=== PATIENT | male | born 1940 | race Caucasian/White ===

== ENCOUNTER 2018-03-05 15:57 | Inpatient (IN) | payer OTHER ==
--- NOTE | 2018-03-05 16:59 | EDPHY ---
HPI/HX/ROS/PE/MDM Narrative: CHIEF COMPLAINT: Drainage from scrotum HPI: This is a 77 y/o male with a history of psoriatic arthritis on immunosuppressants and interstitial lung disease who arrives with his complaining of malodorous drainage from his scrotum that he noticed today, but he believes began yesterday. He had a scrotal abscess treated by Dr. Pascual from urology in May of this year. He says this left a "dimple," but healed well and he's had no recurrent issues until this event. They did not determine the cause of the abscess. 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 He dug through his laundry and saw a small amount of similar drainage on his underwear yesterday. He denies associated pain, fever, or any other symptoms. He also did not experience pain with the prior abscess. REVIEW OF SYSTEMS: A comprehensive 10 system review of systems is otherwise negative aside from elements mentioned in the history of present illness. PMH: Psoriatic arthritis; interstitial lung disease, scrotal abscess removed [address] Pascual. SOCIAL HISTORY: at bedside. Lives in [place]. Urologist: Dr. Pascual. PHYSICAL EXAM: General:Patient is alert, in no acute distress. ENT:Eyes are normal to inspection. ENT inspection normal. Neck: Normal inspection. Full range of motion. Respiratory:No respiratory distress. Breath sounds normal bilaterally. Cardiovascular: Regular rate and rhythm. Strong peripheral pulses. Normal cap refill. Abdomen:The abdomen is nontender to palpation. There are no peritoneal signs. : [place]-sized area of fluctuance on right hemiscrotum near midline with expressible purulence. Back: Normal to inspection. No tenderness to palpation. Skin: Normal color. No rash. Warm and dry. Extremities: Normal appearance. Full range of motion. Neuro: Oriented x3. Normal motor function. Normal sensory function. ED Course: This is an immunosuppressed 77 y/o male with a history of psoriatic arthritis and prior scrotal abscess drained this May who presents with nonpainful scrotal drainage onset yesterday. He has a marble-sized area of fluctuance on the right hemiscrotum with active purulent drainage. Plan for IV, labs, scrotal ultrasound. 171: Consulted with Dr. Pascual, urologist. He recommends admission and will consult. 1723: Consulted with Dr. Wang, ID. She recommends culture and starting 1gm IV Ertapenem. 1744: Spoke with hospitalist service. Dr. Flores accepts admission. US confirms scrotal abscess. - Data Points Imaging: Discussed imaging studies w/ director call center sales Radiologist Laboratory Results: Laboratory Results 03/05/18 17:10 03/05/18 17:10 03/05/18 03/05/18 17:10 17:10 WBC 7.72 10^3/uL 10^3/uL (3.80-9.50) RBC 4.12 10^6/uL L 10^6/uL (4.40-6.38) Hgb 12.5 g/dL L g/dL (13.7-17.5) Hct 38.6 % L % (40.0-51.0) MCV 93.7 fL fL (81.5-99.8) MCH 30.3 pg pg (27.9-34.1) MCHC 32.4 g/dL g/dL (32.4-36.7) RDW 14.2 % % (11.5-15.2) Plt Count 159 10^3/uL 10^3/uL (150-400) MPV 10.3 fL fL (8.7-11.7) Neut % (Auto) 62.4 % % (39.3-74.2) Lymph % (Auto) 16.3 % % (15.0-45.0) [place] % (Auto) 6.6 % % (4.5-13.0) Eos % (Auto) 12.7 % H % (0.6-7.6) Baso % (Auto) 1.6 % % (0.3-1.7) Nucleat RBC Rel Count 0.0 % % (0.0-0.2) Absolute Neuts (auto) 4.82 10^3/uL 10^3/uL (1.70-6.50) Absolute Lymphs (auto) 1.26 10^3/uL 10^3/uL (1.00-3.00) Absolute Monos (auto) 0.51 10^3/uL 10^3/uL (0.30-0.80) Absolute Eos (auto) 0.98 10^3/uL H 10^3/uL (0.03-0.40) Absolute Basos (auto) 0.12 10^3/uL H 10^3/uL (0.02-0.10) Absolute Nucleated RBC 0.00 10^3/uL 10^3/uL (0-0.01) Immature Gran % 0.4 % % (0.0-1.1) Immature Gran # 0.03 10^3/uL 10^3/uL (0.00-0.10) Sodium 142 mEq/L mEq/L (135-145) Potassium 3.8 mEq/L mEq/L (3.3-5.0) Chloride 109 mEq/L mEq/L (97-110) Carbon Dioxide 24 mEq/l mEq/l (22-31) Anion Gap 9 mEq/L mEq/L (6-14) BUN 19 mg/dL mg/dL (7-23) Creatinine 0.7 mg/dL mg/dL (0.7-1.3) Estimated GFR > 60 Glucose 93 mg/dL mg/dL (70-100) Calcium 9.0 mg/dL mg/dL (8.5-10.4) General Time Seen by Provider: 03/05/18 16:25 Initial Vital Signs: Initial Vital Signs Temperature (C) 37.1 C 03/05/18 16:18 Heart Rate 68 03/05/18 16:18 Respiratory Rate 18 03/05/18 16:18 Blood Pressure 190/108 H 03/05/18 16:18 O2 Sat (%) 95 03/05/18 16:18 O2 Delivery Mode Nasal Cannula O2 (L/minute) 4 Allergies/Adverse Reactions: Sulfa (Sulfonamide Antibiotics) Allergy (Verified 03/05/18 18:17) Home Medications: Medication Instructions Recorded Ascorbic Acid [Vitamin C 500 mg 500 mg PO DAILY 03/05/18 (*)] Aspirin EC [Aspirin EC 81 mg (*)] 81 mg PO HS 03/05/18 Budesonide/Formoterol 80/4.5 2 puffs IH BID PRN 03/05/18 [Symbicort 80-4.5 Mcg Inhaler] Cholecalciferol Vit D3 [Vitamin D3 2,000 units PO DAILY 03/05/18 (*)] Magnesium Oxide [Magnesium] 500 mg PO DAILY 03/05/18 Multivitamins [Multivitamin (*)] 1 each PO DAILY 03/05/18 Potassium Gluconate 550 mg PO DAILY 03/05/18 Ranitidine HCl [Zantac] 300 mg PO HS 03/05/18 methylPREDNISolone [Medrol 4mg (*)] 4 mg PO DAILY 03/05/18 Departure - Departure Disposition: [facility] Inpatient Acute Clinical Impression: Scrotal abscess Condition: Fair Report Scribed for: Anjum Solomon Report Scribed by: Carmina Chowdary Date of Report: 03/05/18 Time of Report: 16:55 Physician Review and Approval Statement: Portions of this note were transcribed by an ED scribe. I personally performed the history, physical exam, and medical decision making; and confirm the accuracy of the information in the transcribed note.
[2018-03-05] MEDS ORDERED: ERTAPENEM 1 GM in NS 100 ML IV ONE (17:25)
[2018-03-05 17:26] LABS: PLATELET COUNT 159 10^3/uL (150-400)
[2018-03-05] MEDS ORDERED: ONDANSETRON DISINTEGRATING 4 MG TAB PO PRN (19:27)
[2018-03-05] MEDS ORDERED: PROMETHAZINE HCL 25 MG/ML INJ IVP PRN (19:27)
[2018-03-05] MEDS ORDERED: oxyCODONE IR 5 MG TAB PO PRN (19:27)
[2018-03-05] MEDS ORDERED: ONDANSETRON 4 MG/2 ML VIAL IVP PRN (19:27)
[2018-03-05] MEDS ORDERED: ALBUTEROL 3 ML DEYVIAL IH PRN (19:27)
[2018-03-05] MEDS ORDERED: HYDROCODONE/APAP 5/325 TAB PO PRN (19:27)
[2018-03-05] MEDS ORDERED: BUDESONIDE/FORMOTEROL 80/4.5 60 PUFFS/MDI IH PRN (19:30)
[2018-03-05] MEDS ORDERED: NS 1,000 ML IV SCH (19:30)
--- NOTE | 2018-03-05 20:30 | PDGENHP ---
History and Physical - Chief Complaint drainage from scrotum - History of Present Illness Patient is a 77 yo M with PMH of psoriatic arthritis for which he has been treated with chronic immune modulatory medications and who had a scrotal abscess treated by Dr. Pascual in May of this year. He notes that he stayed off of his immunotherapy medications since then until last week when he began to notice increased arthritic sxs and saw his mold runner who started him on otezla last week. He has been on a "starter packet" of otezla, and had just gotten to the regular dose today. He notes he has been feeling well other than that he noticed some foul smelling drainage in his boxers and noticed that the area of his scrotum where the prior abscess was located was again draining and tender. He has not had fever or chills. He has not had other issues recently. History Information - Allergies/Home Medication List Allergies/Adverse Reactions: Sulfa (Sulfonamide Antibiotics) Allergy (Verified 03/05/18 18:17) Home Medications: Apremilast [Otezla] 30 mg PO BID 03/05/18 [Last Taken 03/05/18] Ascorbic Acid [Vitamin C 500 mg (*)] 500 mg PO DAILY 03/05/18 [Last Taken ] Aspirin EC [Aspirin EC 81 mg (*)] 81 mg PO HS 03/05/18 [Last Taken 03/04/18] Budesonide/Formoterol 80/4.5 [Symbicort 80-4.5 Mcg Inhaler] 2 puffs IH BID PRN 03/05/18 [Last Taken Unknown] Cholecalciferol Vit D3 [Vitamin D3 (*)] 2,000 units PO DAILY 03/05/18 [Last Taken 03/05/18] Magnesium Oxide [Magnesium] 500 mg PO DAILY 03/05/18 [Last Taken 03/05/18] Multivitamins [Multivitamin (*)] 1 each PO DAILY 03/05/18 [Last Taken 03/05/18] Potassium Gluconate 550 mg PO DAILY 03/05/18 [Last Taken 03/05/18] Ranitidine HCl [Zantac] 300 mg PO HS 03/05/18 [Last Taken 03/04/18] methylPREDNISolone [Medrol 4mg (*)] 4 mg PO DAILY 03/05/18 [Last Taken 03/05/18] I have personally reviewed and updated: family history, medical history, social history, surgical history - Past Medical History Additional medical history: psoriatic arthritis on chronic immune suppressants. ILD. scrotal abscess - Surgical History Additional surgical history: surgery for scrotal abscess - Family History Positive for: non-pertinent - Social History Smoking Status: Former smoker Alcohol Use: Rarely Drug Use: None Additional social history: Review of Systems Review of Systems: ROS: 10pt was reviewed & negative except for what was stated in HPI & below Physical Exam Physical Exam: Temp Pulse Resp BP Pulse Ox 36.6 C 66 17 149/86 H 90 L 03/05/18 19:17 03/05/18 19:17 03/05/18 19:17 03/05/18 19:17 03/05/18 19:17 Constitutional: no apparent distress, appears nourished Eyes: PERRL, anicteric sclera Ears, Nose, Mouth, Throat: moist mucous membranes, hearing normal Cardiovascular: regular rate and rhythym, no murmur, rub, or gallop, No edema Respiratory: reduced air movement, inspiratory crackles Gastrointestinal: normoactive bowel sounds, soft, non-tender abdomen Genitourinary: no bladder tenderness, other (scrotal abscess, purulent drainage) Skin: warm, normal color Musculoskeletal: no muscle tenderness Neurologic: AAOx3 Psychiatric: interacting appropriately, not anxious, not encephalopathic Lab Data & Imaging Review 03/05/18 17:10 03/05/18 17:10 WBC 7.72 10^3/uL (3.80-9.50) 03/05/18 17:10 RBC 4.12 10^6/uL (4.40-6.38) L 03/05/18 17:10 Hgb 12.5 g/dL (13.7-17.5) L 03/05/18 17:10 Hct 38.6 % (40.0-51.0) L 03/05/18 17:10 MCV 93.7 fL (81.5-99.8) 03/05/18 17:10 MCH 30.3 pg (27.9-34.1) 03/05/18 17:10 MCHC 32.4 g/dL (32.4-36.7) 03/05/18 17:10 RDW 14.2 % (11.5-15.2) 03/05/18 17:10 Plt Count 159 10^3/uL (150-400) 03/05/18 17:10 MPV 10.3 fL (8.7-11.7) 03/05/18 17:10 Neut % (Auto) 62.4 % (39.3-74.2) 03/05/18 17:10 Lymph % (Auto) 16.3 % (15.0-45.0) 03/05/18 17:10 [place] % (Auto) 6.6 % (4.5-13.0) 03/05/18 17:10 Eos % (Auto) 12.7 % (0.6-7.6) H 03/05/18 17:10 Baso % (Auto) 1.6 % (0.3-1.7) 03/05/18 17:10 Nucleat RBC Rel Count 0.0 % (0.0-0.2) 03/05/18 17:10 Absolute Neuts (auto) 4.82 10^3/uL (1.70-6.50) 03/05/18 17:10 Absolute Lymphs (auto) 1.26 10^3/uL (1.00-3.00) 03/05/18 17:10 Absolute Monos (auto) 0.51 10^3/uL (0.30-0.80) 03/05/18 17:10 Absolute Eos (auto) 0.98 10^3/uL (0.03-0.40) H 03/05/18 17:10 Absolute Basos (auto) 0.12 10^3/uL (0.02-0.10) H 03/05/18 17:10 Absolute Nucleated RBC 0.00 10^3/uL (0-0.01) 03/05/18 17:10 Immature Gran % 0.4 % (0.0-1.1) 03/05/18 17:10 Immature Gran # 0.03 10^3/uL (0.00-0.10) 03/05/18 17:10 Sodium 142 mEq/L (135-145) 03/05/18 17:10 Potassium 3.8 mEq/L (3.3-5.0) 03/05/18 17:10 Chloride 109 mEq/L (97-110) 03/05/18 17:10 Carbon Dioxide 24 mEq/l (22-31) 03/05/18 17:10 Anion Gap 9 mEq/L (6-14) 03/05/18 17:10 BUN 19 mg/dL (7-23) 03/05/18 17:10 Creatinine 0.7 mg/dL (0.7-1.3) 03/05/18 17:10 Estimated GFR > 60 03/05/18 17:10 Glucose 93 mg/dL (70-100) 03/05/18 17:10 Calcium 9.0 mg/dL (8.5-10.4) 03/05/18 17:10 Visualized and Interpreted imaging results: Yes Interpretation: US: scrotal wall thickening and edema with 1.5cm abscess Assessment & Plan Assessment: Scrotal abscess (Acute) 77 yo M with hx of psoriatic arthritis and ILD presenting with recurrent scrotal abscess # scrotal abscess: with some drainage but persistent indurated area that is not draining spontaneously. Urology consulted and Dr. Pascual to see in am, he has operated on this patient in the past and presumably will require drainage again in the am. Started on ertapenem per ID recommendation. Suspect this is at least in part due to resuming immune suppressing medications as next. # psoriatic arthritis: with sxs currently recurring after being off of immune modulating medications other than low dose prednisone since May, and restarting otezla this past week. Given above, will have patient hold otezla again and recommend f/u with mold runner to determine when this should be resumed. # cough: with hx of ILD and pulmonary exam concerning for decreased BS, occasional wheeze and bibasilar rales. Will get cxr, prn albuterol for now. # ILD: as above, patient followed by pulmonary MD in [place], denies significant acute change # observation status Patient new to my care. Old records reviewed and summarized as above. Care plan reviewed with ER doctor including plans for abx. Further hx obtained from patients family present at bedside.
[2018-03-05] MEDS: FAMOTIDINE 20 MG TAB PO SCH (20:45)
--- NOTE | 2018-03-05 20:47 | SOAPPROG ---
SOAP Progress Note Assessment/Plan: Assessment: Localized scrotal abscess - pt. stable and nontoxic. Plan: To OR for I&D tomorrow. (consult dict. # [id number]). Objective: Vital Signs Temp Pulse Resp BP Pulse Ox 36.6 C 66 17 149/86 H 90 L 03/05/18 19:17 03/05/18 19:17 03/05/18 19:17 03/05/18 19:17 03/05/18 19:17 ICD10 Worksheet Patient Problems: Problems Problem Status Onset Scrotal abscess Acute
--- NOTE | 2018-03-06 04:17 | GCON ---
UROLOGY CONSULTATION REFERRING PHYSICIAN: Hospitalist Service REASON FOR CONSULTATION: Scrotal abscess. HISTORY OF PRESENT ILLNESS: This is a 77-year-old gentleman with a longstanding history of psoriatic arthritis who developed a scrotal abscess in May of this year and underwent incision and drainage with extended wound packing and local care thereafter. He was doing well when he noticed some foul smelling drainage in his underwear earlier today and determined it was coming from his scrotum. He called my office as a result. He was asked to present to the emergency room. The patient denies any associated tenderness, fevers, flu- like symptoms. He is not sure when the drainage began but, in retrospect, he looked at his underwear from yesterday and also noticed a smaller spot of drainage. He was started on Otezla last week for his for his arthritis. PAST MEDICAL HISTORY: Psoriatic arthritis, interstitial lung disease. PAST SURGICAL HISTORY: Incision and drainage of a scrotal abscess in 05/2017. ADMISSION MEDICATIONS: Otezla 30 mg b.i.d., methylprednisolone 4 mg daily, ranitidine 300 mg daily, potassium gluconate 550 mg daily, magnesium oxide 500 mg daily, multivitamin, baby aspirin. MEDICAL ALLERGIES: Sulfa. FAMILY HISTORY: Noncontributory. SOCIAL HISTORY: The patient is and lives in the [place] area. He is a former smoker and consumes alcohol rarely at this time. REVIEW OF SYSTEMS: Unremarkable, other than mentioned above in the HPI and Past Medical History. PHYSICAL EXAMINATION: GENERAL: Well-developed, well-nourished white male lying supine in bed, in no acute distress. VITAL SIGNS: Blood pressure 149/86 , pulse 66, respirations 17, oxygen saturation is 98% on room air, temperature 36.6 Celsius. Height 182 cm, weight 90 kg, BMI 27. HEENT: Normocephalic, atraumatic. NECK: Supple. No visual deformities. HEART: Regular rate. CHEST: Unlabored respiratory pattern. ABDOMEN: Soft, without palpable abnormalities. GENITALIA: Normal phallus and urethral meatus. Scrotum is remarkable for an approximately 2 cm area of fluctuance in the midline, immediately adjacent to a prior incision from scrotal abscess incision and drainage in May. With manipulation, I was able to express mucopurulent discharge that is malodorous. There is no significant tenderness nor erythema associated with the scrotum. The testicular structures appear normal. The abscess appears to involve the depth of the scrotal wall, but not obviously any underlying structures. EXTREMITIES: Warm without cyanosis, clubbing, or significant edema. NEUROLOGIC : He is alert and oriented. He answers all questions appropriately with normal mood and affect. DATA REVIEWED: CBC today is normal. Chemistry panel normal. IMPRESSION: Localized recurrent scrotal wall abscess. He is currently stable and not toxic. PLAN: Proceed with scrotal incision and drainage, possible partial scrotectomy , intraoperatively tomorrow. All aspects of this procedure were reviewed in detail with the patient and his family this evening. All questions were answered. Thank you for this consultation. Copy requested to: Dr. Keesha De Souza /[id number]/MODL MTDD
[2018-03-06 05:59] LABS: PLATELET COUNT 143 10^3/uL (150-400)
[2018-03-06] MEDS: ACETAMINOPHEN 325 MG TAB PO PRN ×3 (06:38→17:29)
[2018-03-06] MEDS: ERTAPENEM 1 GM in NS 100 ML IV SCH (07:41)
[2018-03-06] MEDS: MAGNESIUM OXIDE 400 MG TAB PO SCH (07:42)
[2018-03-06] MEDS: MULTIVITAMINS 1 EACH TAB PO SCH (07:42)
[2018-03-06] MEDS: methylPREDNISolone 4 MG TAB PO SCH (07:54)
[2018-03-06] MEDS ORDERED: fentaNYL 100 MCG/2 ML INJ ONE (10:18)
[2018-03-06] MEDS ORDERED: PROPOFOL 200 MG/20 ML VIAL ONE ×3 (10:19→11:36)
[2018-03-06] MEDS ORDERED: DEXAMETHASONE 4 MG/ML VIAL ONE (10:20)
--- NOTE | 2018-03-06 10:24 | PDANEPAE ---
ANE History of Present Illness scrotal abcess I&D. ANE Past Medical History - Cardiovascular History Hx Hypertension: No Hx Arrhythmias: No Hx Chest Pain: No Hx Coronary Artery / Peripheral Vascular Disease: No Hx CHF / Valvular Disease: No Hx Palpitations: No Cardiovascular History Comment: s/p repair of PFO - Pulmonary History Hx COPD: No Hx Asthma/Reactive Airway Disease: No Hx Recent Upper Respiratory Infection: Yes Hx Oxygen in Use at Home: No Hx Sleep Apnea: No Sleep Apnea Screening Result - Last Documented: Positive Pulmonary History Comment: Interstitial lung disease, uses 4 l/min QHS. Status post sleep study: no PAWEL - Neurologic History Hx Cerebrovascular Accident: Yes Neurologic History Comment: S/p TIA in 1999, s/p PFO - Endocrine History Hx Diabetes: No Hypothyroid: No Hyperthyroid: No Obesity: mild - Renal History Hx Renal Disorders: No - Liver History Hx Hepatic Disorders: No - Neurological & Psychiatric Hx Hx Neurological and Psychiatric Disorders: No - Cancer History Hx Cancer: No - GI History GERD: severe Hx Gastrointestinal Disorders: Yes - Other Health History Other Health History: psoriatic arthitis, dx in 2012 - Chronic Pain History Chronic Pain: No - Surgical History Prior Surgeries: partial colectomy, PFO repair, I&D of scrotal abcess, excision of lumbar spine cyst ANE Review of Systems Review of Systems: - Exercise capacity METS (RN): 4 METS ANE Patient History - Allergies Allergies/Adverse Reactions: Sulfa (Sulfonamide Antibiotics) Allergy (Verified 03/05/18 18:17) - Home Medications Home Medications: Apremilast [Otezla] 30 mg PO BID 03/05/18 [Last Taken 03/05/18] Ascorbic Acid [Vitamin C 500 mg (*)] 500 mg PO DAILY 03/05/18 [Last Taken ] Aspirin EC [Aspirin EC 81 mg (*)] 81 mg PO HS 03/05/18 [Last Taken 03/04/18] Budesonide/Formoterol 80/4.5 [Symbicort 80-4.5 Mcg Inhaler] 2 puffs IH BID PRN 03/05/18 [Last Taken Unknown] Cholecalciferol Vit D3 [Vitamin D3 (*)] 2,000 units PO DAILY 03/05/18 [Last Taken 03/05/18] Magnesium Oxide [Magnesium] 500 mg PO DAILY 03/05/18 [Last Taken 03/05/18] Multivitamins [Multivitamin (*)] 1 each PO DAILY 03/05/18 [Last Taken 03/05/18] Potassium Gluconate 550 mg PO DAILY 03/05/18 [Last Taken 03/05/18] Ranitidine HCl [Zantac] 300 mg PO HS 03/05/18 [Last Taken 03/04/18] methylPREDNISolone [Medrol 4mg (*)] 4 mg PO DAILY 03/05/18 [Last Taken 03/05/18] - NPO status NPO Since - Liquids (Date): 03/06/18 NPO Since - Liquids (Time): 00:00 NPO Since - Solids (Date): 03/06/18 NPO Since - Solids (Time): 00:00 - Anes Hx Anes Hx: no prior problems - Smoking Hx Smoking Status: Former smoker Marijuana use: No - Alcohol Use Alcohol Use: Rarely - Family Anes Hx Family Anes Hx: none ANE Labs/Vital Signs - Labs Result Diagrams: 03/06/18 04:20 03/06/18 04:20 - Vital Signs Blood Pressure: 143/83 Heart Rate: 60 Respiratory Rate: 16 O2 Sat (%): 99 Height: 182.88 cm Weight: 90.718 kg ANE Physical Exam - Airway Neck exam: decreased ROM Mallampati Score: Class 2 Mouth exam: normal dental/mouth exam - Pulmonary Pulmonary: clear to auscultation - Cardiovascular Cardiovascular: regular rate and rhythym - ASA Status ASA Status: III ANE Anesthesia Plan Anesthesia Plan: general endotracheal anesthesia
[2018-03-06] MEDS ORDERED: MIDAZOLAM 2 MG/2 ML VIAL IVP ONE (10:36)
[2018-03-06] MEDS ORDERED: MIDAZOLAM 2 MG/2 ML VIAL ONE (10:39)
[2018-03-06] MEDS ORDERED: ROCURONIUM 50 MG/5 ML VIAL ONE (10:44)
--- NOTE | 2018-03-06 10:50 | HOSPPROG ---
Hospitalist Progress Note Assessment/Plan: 77 yo M with hx of psoriatic arthritis and ILD presenting with recurrent scrotal abscess # scrotal abscess: with some drainage but persistent indurated area that is not draining spontaneously. Urology consulted and Dr. Pascual plans for I&D this am. Started on ertapenem per ID recommendation, will continue for now. Suspect this is at least in part due to resuming immune suppressing medications as next. # psoriatic arthritis: with sxs currently recurring after being off of immune modulating medications other than low dose prednisone since May, and restarting otezla this past week. Given above, will have patient hold otezla again and recommend f/u with maintenance shop clerk to determine when this should be resumed. # cough: with hx of ILD and pulmonary exam concerning for decreased BS, occasional wheeze and bibasilar rales. Prn albuterol for now. # ILD: as above, patient followed by pulmonary MD in [place], denies significant acute change Subjective: Patient reports pain in scrotum Objective: Vital Signs Temp Pulse Resp BP Pulse Ox 36.3 C 60 16 143/83 H 99 03/06/18 10:19 03/06/18 10:36 03/06/18 10:36 03/06/18 10:36 03/06/18 10:36 Laboratory Results 03/06/18 04:20 03/06/18 04:20 - Physical Exam Constitutional: no apparent distress Eyes: PERRL Ears, Nose, Mouth, Throat: moist mucous membranes Cardiovascular: regular rate and rhythym Respiratory: no respiratory distress Gastrointestinal: soft, non-tender abdomen Skin: erythema, fluctuance Musculoskeletal: full muscle strength Neurologic: AAOx3 Psychiatric: interacting appropriately ICD10 Worksheet Patient Problems: Problems Problem Status Onset Scrotal abscess Acute
[2018-03-06] MEDS ORDERED: ONDANSETRON 4 MG/2 ML VIAL ONE (11:24)
[2018-03-06] MEDS ORDERED: SUGAMMADEX SODIUM 200 MG/2 ML VIAL IVP ONE (11:28)
[2018-03-06] MEDS ORDERED: NALOXONE HCL 0.4 MG/ML INJ IVP PRN (11:40)
[2018-03-06] MEDS ORDERED: ALBUTEROL 3 ML DEYVIAL IH PRN (11:40)
[2018-03-06] MEDS ORDERED: fentaNYL 100 MCG/2 ML INJ IVP PRN (11:40)
[2018-03-06] MEDS ORDERED: ONDANSETRON 4 MG/2 ML VIAL IVP PRN (11:40)
[2018-03-06] MEDS ORDERED: BUPIVACAINE/EPI 0.5% 30 ML SDV ONE (11:45)
--- NOTE | 2018-03-06 12:06 | POSTOPPROG ---
Post Op Note Date of Operation: 03/06/18 Surgeon: Steve Pascual (# [id number]) Anesthesia: GET(General Endotracheal) Pre-op Diagnosis: Scrotal wall abscess Post-op Diagnosis: Scrotal wall abscess Procedure: Partial scrotectomy Findings: See op note Inf/Abcess present in the surg proc area at time of surgery?: Yes Depth: Superfical (Skin SQ) EBL: Minimal Complications: None Specimen(s): Scrotal wall
[2018-03-06] MEDS ORDERED: ALBUTEROL 3 ML DEYVIAL ONE ×2 (12:13→12:21)
--- NOTE | 2018-03-06 12:16 | POSTANESTH ---
Post Anesthetic Evaluation Cardiovascular Status: Normal, Stable Respiratory Status: Similar to Pre-op Cond. Level of Consciousness/Mental Status: Can Participate in Eval Pain Control: Adequate, Prn Tx Ordered Nausea/Vomiting Control: Adequate, Prn Tx Ordered Complications Possibly Related to Anesthesia: None Noted
--- NOTE | 2018-03-06 12:25 | GOP ---
DATE OF OPERATION: 03/06/2018 SURGEON: Steve Pascual MD ANESTHESIA: General endotracheal with local. PREOPERATIVE DIAGNOSIS: Scrotal wall abscess. POSTOPERATIVE DIAGNOSIS: Scrotal wall abscess. PROCEDURE PERFORMED: Partial scrotectomy. FINDINGS: Scrotal wall abscess in the midline, which was confined to the wall and not involving deep er structures. SPECIMENS: 1. Scrotal abscess for aerobic and anaerobic culture. 1. Partial scrotal wall with contained abscess. 2. ESTIMATED BLOOD LOSS: Minimal. INDICATIONS: This gentleman was admitted yesterday with a localized scrotal abscess with a prior his tory of a scrotal abscess that required incision and drainage in May 2017. The patient presents for operative management at this time. The indications for the procedures as well as potential risk s and complications were discussed with the patient preoperatively. He appeared to understand, his q uestions were answered, and he wished to proceed. Written informed surgical consent was thereafter o btained. DESCRIPTION OF PROCEDURE: The patient was brought to the operating room and administered a general e ndotracheal anesthesia. He was carefully placed in a modified frog-leg supine position on the operat ing room table. The genital area was sterilely prepped with Betadine scrub and paint, and then drape d in the usual sterile fashion. The patient was placed in mild Trendelenburg position. I examined t he patient under anesthesia, that the abscess was localized to the scrotal wall and not in volving deeper layers. Therefore, I decided that I would perform a partial scrotal wall excision. T he area involving the abscess appeared to be approximately 3 to 4 cm in diameter. I made an elliptic al incision around the diseased portion of the scrotal wall that was centered around the scrotal raph e. The portion of scrotal wall to be excised was dissected free from the underlying tunica vaginalis and midline septum with electrocautery. Once the portion of the scrotal wall was completely excised , cultures were obtained on the back table for aerobic and anaerobic organisms. The specimen was als o sent to Pathology for permanent histologic examination. Palpation of the surrounding remaining por tion of the scrotum revealed no abnormalities. The tunica vaginalis was not violated and appeared no rmal. There was good viability to the remaining scrotal wall. I decided to close it primarily. I d id not feel that postoperative drainage was necessary. The underlying scrotal dartos was reapproxima jaylyn with running 3-0 Vicryl suture. The skin edges were then reapproximated with interrupted 3-0 chr omic suture. The wound was dressed with Xeroform gauze, Telfa, 4x4s, scrotal fluffs, and scrotal sup port. A total of 12 cc of 0.5% Marcaine with epinephrine was used for local anesthetic as well. The patient was then awakened, extubated, transferred to his bed, then taken to the recovery room. He t olerated the procedure well overall. COMPLICATIONS: None. DISPOSITION: He was transferred to the recovery room in stable condition. /[id number]/MODL
--- NOTE | 2018-03-06 13:54 | PDMN ---
Medical Necessity Medical necessity: [facility] Urologic Surgery or Procedure GR yo presents with abscess to scrotum. ID consult, pt started on antibx. Urology consult, pt will need urgent surgery - taken for I&D, partial scrotectomy instead. Pt will require additional MN for post op monitoring, cont IV antbx - important to note, pt was taking immunosuppressants prior to this hospitalization. Hx psoriatic arthritis on chronic immune suppressants, ILD, past scrotal abscess. Change to IP status 03/06@1111 per MD order
--- NOTE | 2018-03-06 14:55 | ASMTCMCOM ---
CM Note CM Note Notes: 77yo male admitted for a Scrotal abscess. He has a Hx of psoriatic arthritis and taking chronic immune modulating medicine which he had been not taking due to a previous scrotal abscess. Once he resumed this medication he had more drainage. Patient now on ABX and went to surgery for a partial scrotectomy. Patient lives with his in [place]. CM to follow for possible discharge needs. Date Signed: 03/06/2018 02:54 PM Electronically Signed By:Elizabeth Pennington LCSW
[2018-03-06] MEDS: FAMOTIDINE 20 MG TAB PO SCH (20:32)
[2018-03-07 05:09] VITALS: BP 126/79
--- NOTE | 2018-03-07 08:58 | SOAPPROG ---
SOAP Progress Note Assessment/Plan: Assessment: Localized superficial scrotal abscess - s/p partial scrotectomy yesterday. Doing well. Plan: May discharge from my standpoint whenever deemed appropriate by hospitalist service. I don't believe any discharge antibiotics are necessary. FU in my office in 3 weeks. Wound care instructions provided under Discharge Plan. Subjective: No complaints. Objective: Vital Signs Temp Pulse Resp BP Pulse Ox 36.9 C 61 18 126/79 H 99 03/07/18 04:00 03/07/18 04:00 03/07/18 04:00 03/07/18 04:00 03/07/18 04:00 Microbiology 03/06/18 11:25 Gram Stain - Final Other - Eswab 03/06/18 03/07/18 03/08/18 05:59 05:59 05:59 Intake Total 1300 Output Total 1310 Balance -10 Physical Exam - Physical Exam General Appearance: WD/WN, alert, no apparent distress Abdomen: soft Male Genitalia: other (midline scrotal incision c/d/i, minimal ecchymosis and edema) Neuro/Psych: alert, normal mood/affect ICD10 Worksheet Patient Problems: Problems Problem Status Onset Scrotal abscess Acute
[2018-03-07] MEDS: ERTAPENEM 1 GM in NS 100 ML IV SCH (09:00)
[2018-03-07] MEDS: MAGNESIUM OXIDE 400 MG TAB PO SCH (09:00)
[2018-03-07] MEDS: MULTIVITAMINS 1 EACH TAB PO SCH (09:00)
[2018-03-07] MEDS: methylPREDNISolone 4 MG TAB PO SCH (09:00)
--- NOTE | 2018-03-07 09:44 | ASMTCMCOM ---
CM Note CM Note Notes: CM spoke to Dr. Younger and SAWYER Teague. Pt will d/c without antibiotics per the recommendation of the surgery team. Pt will d/c with supportive . CM available for changes. Plan: Independent Date Signed: 03/07/2018 09:44 AM Electronically Signed By:DAYANA Mcmullen
--- NOTE | 2018-03-07 09:45 | ASMTLACE ---
LACE Length of stay for Answers: 2 days current admission Acuity / Level of Answers: Yes Care: Did the patient have an inpatient admission? Comorbidities - select Answers: Chronic pulmonary disease all that apply # of Emergency department Answers: 1-2 visits in the last 6 months Score: 8 Date Signed: 03/07/2018 09:44 AM Electronically Signed By:DAYANA Mcmullen
--- NOTE | 2018-03-07 11:20 | PDDCSUM ---
Discharge Summary Discharge Summary: Date of Admission: 03/06/2018 Date of Discharge: 03/07/2018 Consults: Urology Procedure: I&D Scrotal Abscess Followup: PCP Hospital Course Problem List: 77 yo M with hx of psoriatic arthritis and ILD presenting with recurrent scrotal abscess # scrotal abscess: with some drainage but persistent indurated area that is not draining spontaneously. Urology consulted and Dr. Pascual performed I&D on . Started on ertapenem per ID recommendation, Urology recommended no abx upon discharge s/p I&D. # psoriatic arthritis: with sxs currently recurring after being off of immune modulating medications other than low dose prednisone since May, and restarting otezla this past week. Given above, will have patient hold otezla again and recommend f/u with supervising floorperson to determine when this should be resumed. # cough: with hx of ILD and pulmonary exam concerning for decreased BS, occasional wheeze and bibasilar rales. Prn albuterol # ILD: as above, patient followed by pulmonary MD in [place], denies significant acute change Time spent on discharge was >35 minutes with >50% of time spent on patient education and counseling.
== END 2018-03-07 10:31 | disposition home or self-care (01) | DRG 718 ==
LOC: F3E 18:45 → OBSVTOIN 03-06 11:11
PROVIDERS: ADMIT Internal Medicine; ATTEND Internal Medicine
PROC: 0VB50ZZ Excision of Scrotum, Open Approach (ICD-10-PCS; principal; 2018-03-06 10:30)
DX: N49.2 Inflammatory disorders of scrotum (principal); L40.52 Psoriatic arthritis mutilans; Z79.899 Other long term (current) drug therapy; J98.4 Other disorders of lung; Z87.891 Personal history of nicotine dependence; Z86.73 Personal history of transient ischemic attack (TIA), and cerebral infarction without residual deficits
CPT/HCPCS: 96365; 97165-GO; G0378; J1100; J1335; J2250; J2270; J2405; J2704; J3010; J7613